=== PATIENT | female | born 1940 | race Caucasian/White ===

== ENCOUNTER 2023-07-23 21:27 | Inpatient (IN) | payer OTHER ==
[~2023-07-23] VITALS: Ht 127 cm; Wt 54.5 kg
[~2023-07-23 21:27] MED LIST: ALUMAG30SU PO; AMIT10 PO; AMIT25 PO; AMOCLA875 PO; ASCO500 PO; ASPI325 PO; ASPI81CH PO; Amaryl1 MG PO; CILO100; CLOP75 PO; Daily Multiple1 EACH PO; IRON325 MG PO; LISI5 PO; MELATONIN5 M1 PO; METO50ER PO; NITR.6SL SL; Nitrostat0.4 MG SL; Norco 5-325 Ta1 EACH PO; PANT40 PO; PRAV20 PO; PROBIOTIC1 EA13 PO; Percocet 5-3251 EACH PO; UBID10
[2023-07-23 22:07] LABS: BASOPHILS ABSOLUTE AUTO 0.06 K/mm3 (0.00-0.23); BASOPHILS PERCENT AUTO 1 % (0-2); EOSINOPHILS ABSOLUTE AUTO 0.22 K/mm3 (0.00-0.68); EOSINOPHILS PERCENT AUTO 3 % (0-6); Hematocrit 30.4 % (33.0-51.0); Hemoglobin 9.5 g/dL (11.5-16.0); IMMATURE GRAN ABSOLUTE AUTO 0.11 K/mm3 (0.00-0.10); IMMATURE GRAN PERCENT AUTO 1 % (0-1); LYMPHOCYTES ABSOLUTE AUTO 0.93 K/mm3 (0.84-5.20); LYMPHOCYTES PERCENT AUTO 11 % (21-46); MONOCYTES ABSOLUTE AUTO 0.95 K/mm3 (0.16-1.47); MONOCYTES PERCENT AUTO 11 % (4-13); Mean Corpuscular HGB 28.5 pg (26.0-34.0); Mean Corpuscular HGB Conc 31.3 g/dL (31.5-36.5); Mean Corpuscular Volume 91 fL (80-100); Mean Platelet Volume 9.1 fL (9.1-12.4); NEUTROPHILS ABSOLUTE AUTO 6.49 K/mm3 (1.96-9.15); NEUTROPHILS PERCENT AUTO 74 % (41-73); Platelet Count 300 K/mm3 (150-400); RDW Coefficient Variation 12.8 % (11.7-14.2); RDW Standard Deviation 41.8 fL (35.1-46.3); Red Blood Cell Count 3.33 M/mm3 (3.80-5.20); White Blood Cell Count 8.76 K/mm3 (4.00-11.30)
[2023-07-23 22:24] LABS: Albumin, Blood 2.5 g/dL (3.4-5.0); Albumin/Globulin Ratio 0.6 (0.8-1.8); Bilirubin, Total 0.3 mg/dL (0.1-1.0); Bun/Creatinine Ratio 11.6 (12.0-20.0); Calcium, Blood 8.7 mg/dL (8.5-10.1); Creatinine, Blood 1.9 mg/dL (0.40-1.00); Globulin, Blood 4.2 g/dL (2.2-4.0); Potassium, Blood 4.6 mmol/L (3.5-5.5); Total Protein, Blood 6.7 g/dL (6.4-8.2)
[2023-07-24 03:35] VITALS: BP 118/52
[2023-07-24 05:12] LABS: BASOPHILS ABSOLUTE AUTO 0.06 K/mm3 (0.00-0.23); BASOPHILS PERCENT AUTO 1 % (0-2); EOSINOPHILS ABSOLUTE AUTO 0.16 K/mm3 (0.00-0.68); EOSINOPHILS PERCENT AUTO 2 % (0-6); Hematocrit 27.7 % (33.0-51.0); Hemoglobin 8.9 g/dL (11.5-16.0); IMMATURE GRAN ABSOLUTE AUTO 0.08 K/mm3 (0.00-0.10); IMMATURE GRAN PERCENT AUTO 1 % (0-1); LYMPHOCYTES ABSOLUTE AUTO 0.85 K/mm3 (0.84-5.20); LYMPHOCYTES PERCENT AUTO 10 % (21-46); MONOCYTES ABSOLUTE AUTO 1.03 K/mm3 (0.16-1.47); MONOCYTES PERCENT AUTO 12 % (4-13); Mean Corpuscular HGB 28.9 pg (26.0-34.0); Mean Corpuscular HGB Conc 32.1 g/dL (31.5-36.5); Mean Corpuscular Volume 90 fL (80-100); Mean Platelet Volume 9.3 fL (9.1-12.4); NEUTROPHILS ABSOLUTE AUTO 6.44 K/mm3 (1.96-9.15); NEUTROPHILS PERCENT AUTO 75 % (41-73); Platelet Count 275 K/mm3 (150-400); RDW Coefficient Variation 12.7 % (11.7-14.2); RDW Standard Deviation 41.1 fL (35.1-46.3); Red Blood Cell Count 3.08 M/mm3 (3.80-5.20); White Blood Cell Count 8.62 K/mm3 (4.00-11.30)
--- NOTE | 2023-07-24 06:00 | NUR ---
SHIFT SUMMARY NILA IS ALERT AND FULLY ORIENTED ON ARRIVAL FROM THE ED @ 0330. SHE IS ACCOMPANIED BY SON IN LAW. 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 PT AND SON IN LAW REPORT IMPROVEMENTS IN STRENGTH TO RIGHT SIDE, WELL CLEARER SPEECH SINCE YESTERDAY. PT ORIENTED TO ROOM, ADMISSION ASSESSMENT COMPLETED. PT RESTING IN BED AT A LOW POSITION WITH THE CALL LIGHT IN REACH.
[2023-07-24 06:01] LABS: Albumin, Blood 2.1 g/dL (3.4-5.0); Albumin/Globulin Ratio 0.6 (0.8-1.8); Bilirubin, Total 0.3 mg/dL (0.1-1.0); Bun/Creatinine Ratio 10.9 (12.0-20.0); Calcium, Blood 8.1 mg/dL (8.5-10.1); Creatinine, Blood 1.83 mg/dL (0.40-1.00); Globulin, Blood 3.8 g/dL (2.2-4.0); Potassium, Blood 4.4 mmol/L (3.5-5.5); Total Protein, Blood 5.9 g/dL (6.4-8.2)
[2023-07-24 08:13] VITALS: BP 123/60
[2023-07-24 11:42] LABS: CHOL/HDL RATIO 4.1; Cholesterol 115 mg/dL (50-200); HDL Cholesterol 28 mg/dL (>39); LDL/HDL RATIO 2.6; Low Density Lipoprotein Chol 74 mg/dL (0-110); Triglycerides 65 mg/dL (30-160); Very Low Density Lipoprot Chol 13 mg/dL (6-32)
[2023-07-24 14:40] VITALS: BP 129/56
[2023-07-24] MEDS ORDERED: AMARYL1 M1 PO (16:12)
[2023-07-24] MEDS ORDERED: FENTANYL1 EA10 TOP (16:13)
[2023-07-24] MEDS ORDERED: AMIT50 PO (16:14)
[2023-07-24] MEDS ORDERED: Ondansetron Odt8 MG MM (16:14)
--- NOTE | 2023-07-24 17:47 | NUR ---
PT IS A/OX4, PLEASANT AND COOPERATIVE. THE PT IS UP WITH MINIMAL ASSIST USEING THE GAITE BELT. THE PT WORKED WITH THE PHYSICAL, OCCUPATIONAL AND SPEECH THERAPY TODAY. PT APPEARS TO BE BREATHING EASILY ON RA AT THIS TIME. PT DENIES ANY PAIN. DR. OVALLE WAS IN TODAY TO SEE THE PATIENT FOR A HEMOTOLOGY CONSULT. THE PTS SON IN LAW WAS AT THE BED SIDE FOR MOST OF THE DAY. CALL LIGHT IN REACH. BED IN THE LOW POSITION.
[2023-07-24 20:48] VITALS: BP 129/62
[2023-07-24] MEDS ORDERED: Acetaminophen650 M1 PO (22:05)
[2023-07-24] MEDS ORDERED: ELIQUIS5 M2 PO (22:06)
[2023-07-25 03:40] VITALS: BP 106/65
--- NOTE | 2023-07-25 04:48 | NUR ---
SHIFT SUMMARY 82 YR F ADMITTED ON 07/24/23 FOR CVA. DNR. NO ACUTE CHANGES THIS SHIFT. PT HAS HAD NO C/O PAIN OR DISCOMFORT THIS SHIFT. SHE CALLS APPROPRIATELY FOR ASSISTANCE TO THE BATHROOM. NO ADVERSE EVENTS REPORTED FROM TELE MONITOR. PT IS PLEASANT AND COOPERATIVE WITH CARE.
[2023-07-25 07:35] VITALS: BP 134/46
[2023-07-25] MEDS ORDERED: XARELTO20 MG PO (13:16)
[2023-07-25] MEDS ORDERED: ASPI81CH PO (13:17)
[2023-07-25] MEDS ORDERED: ATOR40TA PO (13:18)
--- NOTE | 2023-07-25 14:50 | NUR ---
[id number] PATIENT DISCHARGED HOME WITH HOME HEALTH, SON AND ACCOMPANIED PATIENT, ALL STATED UNDERSTANDING OF MEDICATIONS, FURTHER TREATMENTS, AND FOLLOW UP NEEDS, FAMILY AND PATIENT PLEASANT TO ALL CARE
[2023-07-27 08:07] LABS: HEMOGLOBIN A1C 5.6 % (4.8-5.6)
== END 2023-07-25 14:30 | disposition home health service (06) | DRG 65 ==
LOC: ER 21:27 → MEDS 21:28
PROVIDERS: Emergency Medicine; Family Medicine; Hospitalist; ADMIT Internal Medicine
DX: I63.89 Other cerebral infarction (principal); C34.12 Malignant neoplasm of upper lobe, left bronchus or lung; C79.31 Secondary malignant neoplasm of brain; G81.91 Hemiplegia, unspecified affecting right dominant side; C79.51 Secondary malignant neoplasm of bone; Z66 Do not resuscitate; R29.706 NIHSS score 6; N18.9 Chronic kidney disease, unspecified; I12.9 Hypertensive chronic kidney disease with stage 1 through stage 4 chronic kidney disease, or unspecified chronic kidney disease; M19.90 Unspecified osteoarthritis, unspecified site; D63.1 Anemia in chronic kidney disease; R29.810 Facial weakness; E88.09 Other disorders of plasma-protein metabolism, not elsewhere classified; E83.39 Other disorders of phosphorus metabolism; Z90.710 Acquired absence of both cervix and uterus; Z87.891 Personal history of nicotine dependence; Z90.5 Acquired absence of kidney; Z90.89 Acquired absence of other organs; Z90.49 Acquired absence of other specified parts of digestive tract; Z98.890 Other specified postprocedural states; Z79.2 Long term (current) use of antibiotics; Z79.811 Long term (current) use of aromatase inhibitors; Z79.899 Other long term (current) drug therapy; Z79.84 Long term (current) use of oral hypoglycemic drugs; Z86.711 Personal history of pulmonary embolism
CPT/HCPCS: 36415; 70450; 70470; 70496; 70498; 71045; 80053; 80061; 83036; 85025; 92526; 92610; 93005; 93010; 93306; 97110; 97116; 97161; 97165; 97530; 99285-25; A9270; G0378; J2405; J7030; Q9967

== ENCOUNTER → 2023-08-05 | Outpatient (CLI) | payer OTHER ==
[~2023-08-05] MED LIST changes: +AMARYL1 M1 PO; +AMIT50 PO; +ATOR40TA PO; +Acetaminophen650 M1 PO; +ELIQUIS5 M2 PO; +FENTANYL1 EA10 TOP; +Ondansetron Odt8 MG MM; +XARELTO20 MG PO
[2023-08-05 19:36] LABS: Albumin, Blood 2.1 g/dL (3.4-5.0); Albumin/Globulin Ratio 0.5 (0.8-1.8); Bilirubin, Total 0.2 mg/dL (0.1-1.0); Bun/Creatinine Ratio 23.8 (12.0-20.0); Calcium, Blood 9.1 mg/dL (8.5-10.1); Creatinine, Blood 2.1 mg/dL (0.40-1.00); Globulin, Blood 4.2 g/dL (2.2-4.0); Potassium, Blood 5.6 mmol/L (3.5-5.5); Total Protein, Blood 6.3 g/dL (6.4-8.2)
== END | disposition home or self-care (01) ==
LOC: LAB 18:17 → LAB SHORT 18:17
PROVIDERS: Internal Medicine Hematology & Oncology
DX: C34.12 Malignant neoplasm of upper lobe, left bronchus or lung (principal)
CPT/HCPCS: 80053

== ENCOUNTER 2023-08-07 15:11 | Observation (INO) | payer OTHER ==
[~2023-08-07] VITALS: Ht 152.4 cm; Wt 51.6 kg
[2023-08-07 17:29] LABS: BASOPHILS ABSOLUTE AUTO 0.06 K/mm3 (0.00-0.23); BASOPHILS PERCENT AUTO 1 % (0-2); EOSINOPHILS ABSOLUTE AUTO 0.21 K/mm3 (0.00-0.68); EOSINOPHILS PERCENT AUTO 2 % (0-6); IMMATURE GRAN ABSOLUTE AUTO 0.34 K/mm3 (0.00-0.10); IMMATURE GRAN PERCENT AUTO 3 % (0-1); LYMPHOCYTES PERCENT AUTO 9 % (21-46); MONOCYTES ABSOLUTE AUTO 1.02 K/mm3 (0.16-1.47); MONOCYTES PERCENT AUTO 9 % (4-13); Mean Corpuscular HGB 28.9 pg (26.0-34.0); Mean Corpuscular HGB Conc 31.6 g/dL (31.5-36.5); Mean Corpuscular Volume 91 fL (80-100); Mean Platelet Volume 9.5 fL (9.1-12.4); NEUTROPHILS ABSOLUTE AUTO 8.98 K/mm3 (1.96-9.15); NEUTROPHILS PERCENT AUTO 77 % (41-73); Platelet Count 426 K/mm3 (150-400); RDW Coefficient Variation 14.6 % (11.7-14.2); RDW Standard Deviation 44.6 fL (35.1-46.3); Red Blood Cell Count 1.94 M/mm3 (3.80-5.20); White Blood Cell Count 11.61 K/mm3 (4.00-11.30)
[2023-08-07 17:42] LABS: Hematocrit 17.7 % (33.0-51.0); Hemoglobin 5.6 g/dL (11.5-16.0)
[2023-08-07 17:47] LABS: Albumin, Blood 2.2 g/dL (3.4-5.0); Albumin/Globulin Ratio 0.6 (0.8-1.8); Bilirubin, Total 0.3 mg/dL (0.1-1.0); Bun/Creatinine Ratio 24.7 (12.0-20.0); Calcium, Blood 8.9 mg/dL (8.5-10.1); Creatinine, Blood 2.39 mg/dL (0.40-1.00); Globulin, Blood 3.9 g/dL (2.2-4.0); Potassium, Blood 5.4 mmol/L (3.5-5.5); Total Protein, Blood 6.1 g/dL (6.4-8.2)
[2023-08-07 22:23] VITALS: BP 96/61
--- NOTE | 2023-08-08 03:55 | NUR ---
2220: ASSUMED CARE OF PT. REPORT RECEIVED FROM ED RN. PT ARRIVED VIA STRETCHER, TRANSFERED THREE PERSON TO THE BED WITHOUT COMPLICATION. PT IS A/O X4 AT THIS TIME. REPORTS THAT SHE HAS BEEN TRYING TO VOID WITHOUT SUCCESS. BLADDER SCAN REVEALS >600ML OF FLUID. ORDER FOR CATHETER RECEIVED AND CATHETER PLACED PER PROTOCOL. PT TOLERATED WELL. STAT LOCK IN PLACE. DRAINING TO DEPENDENT DRAINAGE BACK, CLEAR YELLOW URINE. PT IS EDUCATED ON THE CALL LIGHT, FALL SAFETY, CAUTI PREVENTION, AND ORIENTED TO THE ROOM. SON IN LAW IS AT THE BEDSIDE THROUGHOUT THE SHIFT. AT ONE POINT PT WOKE UP CONFUSED, ORIENTED TO SELF. ABLE TO REORIENT TO PLACE. PT IS ANXIOUS, PULLING AT LINES, AND TRYING TO STAND WHEN SHE HAS NOT BEEN ABLE TO FOR SOME TIME. MEDICATED FOR ANXIETY PER ORDERS SEE EMR. 0400: PT LAYING IN BED ON HER BACK, TURNED SLIGHTLY TO THE RIGHT. BREATHING IS EVEN AND UNLABORED, NO ACUTE DISTRESS AT THIS TIME. FAMILY AT THE BEDSIDE. NEEDS ARE MET. SAFETY MEASURES IN PLACE, BED ALARM IS ON, CALL LIGHT WITHIN REACH.
--- NOTE | 2023-08-08 15:50 | NUR ---
PT HOME WITH HOSPICE. TRANSPORTED BY FAMILY. PT WAS ANXIOUS TO LEAVE DENIED PAIN AT TIME OF DISCHARGE. BED TO BE DELIVERED TO HOME TODAY. ALERT AND CONFUSED
== END 2023-08-08 15:45 | disposition hospice, home (50) ==
LOC: ER 15:11 → ERHOLD 15:12 → MEDS 15:12 → ERHOLD 15:12 → MEDS 22:14
PROVIDERS: Emergency Medicine; ADMIT Internal Medicine
DX: C34.90 Malignant neoplasm of unspecified part of unspecified bronchus or lung (principal); C79.31 Secondary malignant neoplasm of brain; N18.30 Chronic kidney disease, stage 3 unspecified; Z86.73 Personal history of transient ischemic attack (TIA), and cerebral infarction without residual deficits; Z51.5 Encounter for palliative care; D63.0 Anemia in neoplastic disease
CPT/HCPCS: 71045; 80053; 84484; 85025; 93005; 93010; 96360; 96361; 96374; 99285-25; A9270; G0378; J2060; J7030